=== PATIENT | female | born 1980 | race Caucasian/White ===

== ENCOUNTER 2016-09-09 10:20 | Emergency (ER) | payer OTHER ==
[2016-09-09] MEDS: SODIUM CHLORIDE 0.9% 1,000 ML IV STA (10:59)
[2016-09-09] MEDS: ONDANSETRON 4 MG/2 ML VIAL IVP STA ×2 (10:59→11:27)
[2016-09-09] MEDS: SODIUM CHLORIDE 0.9% 500 ML IV STA (11:00)
[2016-09-09] MEDS: METOCLOPRAMIDE 5 MG/ML 2 ML VIAL IVP STA (11:03)
[2016-09-09 11:15] LABS: Basophils % (A) 0 %; CH 31.7; CHCM 35.1; Eosinophils # (A) 0.1 k/uL (0-0.7); Eosinophils % (A) 0 %; HCT 46.4 % (34.0-46.0); HDW 2.42; HGB 15.6 gm/dL (11.4-16.0); Luc # (Auto) 0.12; Luc % (Auto) 1; Lymphocytes # (A) 1.1 k/uL (1.0-4.8); Lymphocytes % (A) 8 %; MCH 30.4 pg (25.0-35.0); MCHC 33.5 g/dL (31.0-37.0); MCV 90.6 fL (80.0-100.0); Mean Platelet Volume 7.1; Monocytes # (A) 0.6 k/uL (0-1.0); Monocytes % (A) 4 %; Neutrophils # (A) 11.8 k/uL (1.3-7.7); Neutrophils % (A) 86 %; RBC 5.12 m/uL (3.80-5.40); RDW 12.9 % (11.5-15.5); WBC 13.8 k/uL (3.8-10.6); WBC (Perox) 13.92
[2016-09-09 11:25] LABS: ALT 32 U/L (9-52); AST 19 U/L (14-36); Alkaline Phosphatase 65 U/L (38-126); Amylase 76 U/L (30-110); Anion Gap 15 mmol/L; Blood Urea Nitrogen 15 mg/dL (7-17); Calcium 9.6 mg/dL (8.4-10.2); Carbon Dioxide 19 mmol/L (22-30); Chloride 107 mmol/L (98-107); Glucose 110 mg/dL (74-99); Non-African American GFR(MDRD) >60 (>60 ml/min/1.73 sqM); Potassium 4.1 mmol/L (3.5-5.1); Sodium 141 mmol/L (137-145); Total Bilirubin 1.1 mg/dL (0.2-1.3); Total Protein 7.5 g/dL (6.3-8.2)
--- NOTE | 2016-09-09 11:49 | ED ---
Nausea/Vomiting/Diarrhea HPI - General Chief complaint: Nausea/Vomiting/Diarrhea Stated complaint: vomiting Time Seen by Provider: 09/09/16 10:42 Source: patient, family, RN notes reviewed Mode of arrival: ambulatory Limitations: no limitations - History of Present Illness Initial comments: 36-year-old female presents emergency Department chief complaint nausea vomiting. Patient states that she has ongoing cyclic vomiting secondary to her menstrual cycle. She states that she normally takes Reglan but if she does not take it before she starts vomiting she ends up in the hospital. Patient states that she's had multiple episodes of vomiting all morning long. Patient states that she had no fevers no chills. She states she just started menstrual cycle. Denies any dysuria hematuria. Patient states that she had no chest pain or shortness breath. Patient offers no complaints. - Related Data Previous Rx's Medication Instructions Recorded Metoclopramide [Reglan] 10 mg PO Q6HR PRN #20 tab 11/23/15 Allergies Allergy/AdvReac Type Severity Reaction Status Date / Time hydrocodone Allergy Unknown Verified 09/09/16 10:33 Review of Systems ROS Statement: Those systems with pertinent positive or pertinent negative responses have been documented in the HPI. ROS Other: All systems not noted in ROS Statement are negative. Past Medical History Past Medical History: No Reported History History of Any Multi-Drug Resistant Organisms: None Reported Past Surgical History: No Surgical Hx Reported Past Psychological History: No Psychological Hx Reported Smoking Status: Current every day smoker Past Alcohol Use History: None Reported Past Drug Use History: Marijuana General Exam Limitations: no limitations General appearance: alert, in no apparent distress Head exam: Present: atraumatic, normocephalic, normal inspection Eye exam: Present: normal appearance, PERRL, EOMI. Absent: scleral icterus, conjunctival injection, periorbital swelling ENT exam: Present: normal exam, normal oropharynx, mucous membranes moist, TM's normal bilaterally, normal external ear exam Neck exam: Present: normal inspection, full ROM. Absent: tenderness, meningismus, lymphadenopathy Respiratory exam: Present: normal lung sounds bilaterally. Absent: respiratory distress, wheezes, rales, rhonchi, stridor Cardiovascular Exam: Present: regular rate, normal rhythm, normal heart sounds. Absent: systolic murmur, diastolic murmur, rubs, gallop, clicks GI/Abdominal exam: Present: soft, normal bowel sounds. Absent: distended, tenderness, guarding, rebound, rigid Neurological exam: Present: alert Skin exam: Present: warm, dry, intact, normal color. Absent: rash Course Vital Signs 09/09/16 10:29 Temperature 97.4 F L Pulse Rate 78 Respiratory 18 Rate Blood Pressure 125/58 O2 Sat by Pulse 99 Oximetry - Reevaluation(s) Reevaluation #1: 09/09/16 12:31 Patient was reevaluated his time. She states she's been much improved at this time. Patient's abdomen was reevaluated and in his essentially nontender. Patient asking to be discharged. Medical Decision Making - Medical Decision Making 36-year-old female presented for nausea vomiting dysmenorrhea type symptoms. Patient is feeling improved after IV antiemetics and fluids. Patient has Reglan at home and will be discharged. This is a chronic condition. - Lab Data Result diagrams: 09/09/16 10:57 09/09/16 10:57 Lab Results 09/09/16 09/09/16 09/09/16 Range/Units 10:57 10:57 12:03 WBC 13.8 H (3.8-10.6) k/uL RBC 5.12 (3.80-5.40) m/uL Hgb 15.6 (11.4-16.0) gm/dL Hct 46.4 H (34.0-46.0) % MCV 90.6 (80.0-100.0) fL MCH 30.4 (25.0-35.0) pg MCHC 33.5 (31.0-37.0) g/dL RDW 12.9 (11.5-15.5) % Plt Count 276 (150-450) k/uL Neutrophils % 86 % Lymphocytes % 8 % Monocytes % 4 % Eosinophils % 0 % Basophils % 0 % Neutrophils # 11.8 H (1.3-7.7) k/uL Lymphocytes # 1.1 (1.0-4.8) k/uL Monocytes # 0.6 (0-1.0) k/uL Eosinophils # 0.1 (0-0.7) k/uL Basophils # 0.0 (0-0.2) k/uL Sodium 141 (137-145) mmol/L Potassium 4.1 (3.5-5.1) mmol/L Chloride 107 (98-107) mmol/L Carbon Dioxide 19 L (22-30) mmol/L Anion Gap 15 mmol/L BUN 15 (7-17) mg/dL Creatinine 0.90 (0.52-1.04) mg/dL Est GFR (MDRD) Af Amer >60 (>60 ml/min/1.73 sqM) Est GFR (MDRD) Non-Af >60 (>60 ml/min/1.73 sqM) Glucose 110 H (74-99) mg/dL Calcium 9.6 (8.4-10.2) mg/dL Total Bilirubin 1.1 (0.2-1.3) mg/dL AST 19 (14-36) U/L ALT 32 (9-52) U/L Alkaline Phosphatase 65 (38-126) U/L Total Protein 7.5 (6.3-8.2) g/dL Albumin 4.4 (3.5-5.0) g/dL Amylase 76 (30-110) U/L Lipase 62 (23-300) U/L Urine Color Yellow Urine Appearance Clear (Clear) Urine pH 6.5 (5.0-8.0) Ur Specific [place] 1.026 (1.001-1.035) Urine Protein 1+ H (Negative) Urine Glucose (UA) Negative (Negative) Urine Blood Moderate H (Negative) Urine Nitrate Negative (Negative) Urine Bilirubin Negative (Negative) Urine Urobilinogen 2.0 (<2.0) mg/dL Ur Leukocyte Esterase Moderate H (Negative) Urine RBC >182 H (0-5) /hpf Urine WBC 21 H (0-5) /hpf Ur Squamous Epith Cells 1 (0-4) /hpf Urine Bacteria Rare H (None) /hpf Urine Mucus Few H (None) /hpf Disposition Clinical Impression: Acute vomiting, Dysmenorrhea Disposition: HOME SELF-CARE Condition: Stable Instructions: Acute Nausea and Vomiting (ED) Additional Instructions: Please return to the Emergency Department if symptoms worsen or any other concerns. Time of Disposition: 12:32
[2016-09-09 12:31] LABS: Appearance,Urine Clear (Clear); Bacteria,Urine Rare /hpf; Bilirubin,Urine Negative (Negative); Glucose,Urine (UA) Negative (Negative); Ketones,Urine 2+ (Negative); Leukocyte Esterase,Urine Moderate (Negative); Mucus,Urine Few /hpf; Nitrite,Urine Negative (Negative); PH, Urine 6.5 (5.0-8.0); Particle Count 9271; Protein,Urine 1+ (Negative); RBC,Urine >182 /hpf (0-5); Specific Gravity,Urine 1.026 (1.001-1.035); Squamous Epithelial Cell,Urine 1 /hpf (0-4); UA Billing (MACRO vs. MICRO) MICRO; WBC,Urine 21 /hpf (0-5)
[2016-09-09 12:40] VITALS: BP 109/59; PULSE 70; RESP 16; TEMP 97.7
== END 2016-09-09 12:41 | disposition home or self-care (01) ==
LOC: EC 10:20
DX: G43.A0 Cyclical vomiting, in migraine, not intractable (principal); N94.6 Dysmenorrhea, unspecified; Z88.5 Allergy status to narcotic agent; F17.200 Nicotine dependence, unspecified, uncomplicated
CPT/HCPCS: 36415; 80053; 82150; 83690; 85025; 81001; 96374; 96375; 96376; 96361; 99284; J2765; J2405

== ENCOUNTER → 2016-09-27 | Outpatient (CLI) | payer OTHER ==
--- NOTE | 2016-09-27 11:15 | MR ---
MR cervical spine and lumbar spine HISTORY: Neck pain and back pain Multiplanar multisequence imaging obtained through the cervical and lumbar spine No comparisons Cervical spine MRI: Cervical vertebral bodies show preserved height, alignment, and there is some inc reased signal on T1 and T2-weighted sequences within the fifth cervical vertebral body to the left of midline likely hemangioma. Similarly T1 there is likely hemangioma present within the vertebral body . No significant central canal stenosis. Cervical cord signal, cervical medullary junction are normal . Partially empty sella noted incidentally. C2-3: No significant foraminal encroachment. No sizable disc herniation. C3-4: Posterior extension of endplate disc complex causes only minimal anterior mass effect on the th ecal sac. No significant foraminal encroachment. C4-5: Uncovertebral joint hypertrophy and facet arthropathy encroach mildly on the neural foramina le ft greater than right. No evident disc herniation C5-6: No significant foraminal encroachment or disc herniation C6-7: Mild posterior broad-based disc bulge causes slight anterior mass effect on the thecal sac. No significant foraminal encroachment. C7-T1: Unremarkable IMPRESSION: Mild degenerative disc disease. Lumbar MRI: Probable hemangiomas within the L3 vertebral body, T11 vertebral body. Lumbar vertebral b odies show preserved height and alignment. There is some loss of disc height and signal at L4-5, L5-S 1 compatible with disc desiccation. The conus is at L1 shows an unremarkable appearance. L5-S1: There is some facet arthropathy change. Minimal anterolisthesis grade 1 is present. No signifi cant central stenosis or sizable disc herniation. Circumferential extension of endplate disc complex accompanied with the listhesis contributes to cause minimal femoral encroachment bilaterally. L4-5: Facet arthropathy with hypertrophy of ligamentum flavum causes minimal lateral recess stenosis. Circumferential posterior broad-based disc bulge contacts the anterior thecal sac. No significant fo raminal encroachment or central stenosis L3-4: Hypertrophy of ligamentum flavum encroaches mildly on the lateral recesses. No significant fora joshua encroachment or evident disc herniation L2-3: Within normal limits L1-2: Unremarkable T12-L1: No significant abnormality IMPRESSION: Degenerative disc disease and facet arthropathy changes described. Probable hemangiomas w ithin multiple vertebral bodies. Additional findings above.
== END | disposition home or self-care (01) ==
LOC: RADMRIMAIN 09:20
PROVIDERS: ATTEND Psychiatry & Neurology Pain Medicine
DX: M51.36 Other intervertebral disc degeneration, lumbar region (principal); M46.96 Unspecified inflammatory spondylopathy, lumbar region; M50.30 Other cervical disc degeneration, unspecified cervical region
CPT/HCPCS: 72141; 72148

== ENCOUNTER → 2016-10-14 | Outpatient (CLI) | payer OTHER ==
[2016-10-14 12:24] LABS: CH 31.3; HCT 44.2 % (34.0-46.0); HGB 14.8 gm/dL (11.4-16.0); MCHC 33.5 g/dL (31.0-37.0); MCV 92.5 fL (80.0-100.0); Mean Platelet Volume 8.1; RBC 4.78 m/uL (3.80-5.40); RDW 12.9 % (11.5-15.5); WBC 6.9 k/uL (3.8-10.6)
[2016-10-14 12:48] LABS: Hemoglobin A1C 4.8 % (4.2-6.1)
[2016-10-14 12:55] LABS: ALT 34 U/L (9-52); AST 24 U/L (14-36); Alkaline Phosphatase 66 U/L (38-126); Anion Gap 11 mmol/L; Blood Urea Nitrogen 10 mg/dL (7-17); C Reactive Protein <5.0 mg/L (<10.0); Calcium 9.7 mg/dL (8.4-10.2); Carbon Dioxide 25 mmol/L (22-30); Chloride 105 mmol/L (98-107); Creatine Kinase 50 U/L (30-135); Glucose 80 mg/dL (74-99); Magnesium 1.9 mg/dL (1.6-2.3); Non-African American GFR(MDRD) >60 (>60 ml/min/1.73 sqM); Potassium 4.1 mmol/L (3.5-5.1); Sodium 141 mmol/L (137-145); Total Bilirubin 0.9 mg/dL (0.2-1.3); Total Protein 7.4 g/dL (6.3-8.2)
[2016-10-14 13:09] LABS: Erythrocyte Sedimentation Rate 3 mm/hr (0-20)
[2016-10-14 13:37] LABS: Vitamin B12 528 pg/mL (239-931)
--- NOTE | 2016-10-14 14:46 | XR ---
Bilateral knees HISTORY: Bilateral knee pain 2 views of both knees submitted On mineralization, joint spaces and alignment are maintained. There is no evident joint effusion bila terally. IMPRESSION: No significant abnormalities evident.
--- NOTE | 2016-10-14 14:50 | XR ---
Left ankle HISTORY: Pain 3 views of the left ankle Bone mineralization, joint spaces and alignment are maintained. No significant soft tissue swelling. IMPRESSION: Normal left ankle
--- NOTE | 2016-10-14 14:50 | XR ---
Left hip HISTORY: Pain 2 views of the left hip Bone mineralization, joint spaces and alignment are maintained. Pelvic calcifications are likely vasc ular. IMPRESSION: No significant abnormalities evident
[2016-10-14 19:48] LABS: ANA w/Reflex to Titer NEGATIVE (NEGATIVE)
[2016-10-15 05:47] LABS: Cyclic Citrullinated Pep IgG 4 UNITS (<20)
[2016-10-17 15:08] LABS: Scleroderma 70 Antibody 3 UNITS (<20)
[2016-10-18 07:11] LABS: Vitamin E (Alpha Tocopherol) 914 ug/dL (500-1800)
[2016-10-24 11:49] LABS: Mis test requested (Blood) PM-Scl Antibody
[2016-10-24 22:34] LABS: Vitamin K 293 pg/mL (80-1160)
== END | disposition home or self-care (01) ==
LOC: RADXRMAIN 11:04
PROVIDERS: ATTEND Psychiatry & Neurology Neurology
DX: M25.561 Pain in right knee (principal); M25.562 Pain in left knee; M25.572 Pain in left ankle and joints of left foot; M25.552 Pain in left hip
CPT/HCPCS: 73502; 80053; 82306; 82550; 82607; 83036; 83516; 83519; 83735; 84207; 84425; 84446; 84590; 84591; 84597; 85027; 85652; 86038; 86140; 86200; 86225; 86235

== ENCOUNTER → 2017-01-06 | Outpatient (CLI) | payer OTHER | END | disposition home or self-care (01) | LOC: LABWHC1 10:24 | PROVIDERS: ATTEND Psychiatry & Neurology Pain Medicine | DX: E55.9 Vitamin D deficiency, unspecified (principal) | CPT/HCPCS: 36415; 82306 ==

== ENCOUNTER 2017-08-24 00:46 | Emergency (ER) | payer OTHER ==
[2017-08-24] MEDS ORDERED: METOCLOPRAMIDE 5 MG/ML 2 ML VIAL IVP STA (01:12)
[2017-08-24] MEDS ORDERED: SODIUM CHLORIDE 0.9% 2,000 ML IV ONE (01:13)
--- NOTE | 2017-08-24 01:14 | ED ---
Abdominal Pain HPI - General Chief Complaint: Abdominal Pain Stated Complaint: vomiting Time Seen by Provider: 08/24/17 01:00 Source: patient, family, RN notes reviewed Mode of arrival: wheelchair Limitations: no limitations - History of Present Illness Initial Comments: This is a 37-year-old female who started her menstrual period today and started having nausea and vomiting shortly thereafter. He states normally she can take Reglan before the period starts she can truncate the nausea vomiting she was unable to do this today. She has some generalized abdominal pain nausea vomiting. He did pass witnesses happen she needed IV fluids and IV Reglan. She has some complaints of neck pain she does have a procedure scheduled for tomorrow she would prefer no nonsteroidals. MD Complaint: abdominal pain, other - Related Data Home Medications Medication Instructions Recorded Confirmed Metoclopramide [Reglan] 10 mg PO DAILY 09/09/16 08/24/17 Allergies Allergy/AdvReac Type Severity Reaction Status Date / Time hydrocodone Allergy Unknown Verified 09/09/16 12:33 Review of Systems ROS Statement: Those systems with pertinent positive or pertinent negative responses have been documented in the HPI. ROS Other: All systems not noted in ROS Statement are negative. Past Medical History Past Medical History: No Reported History History of Any Multi-Drug Resistant Organisms: None Reported Past Surgical History: No Surgical Hx Reported Past Psychological History: No Psychological Hx Reported Smoking Status: Current every day smoker Past Alcohol Use History: None Reported Past Drug Use History: Marijuana General Exam - General Exam Comments Initial Comments: This is a well-developed well-nourished awake alert oriented 3 female she does read lips and his heart.. She is actively vomiting. Limitations: no limitations General appearance: alert, anxious, in distress Head exam: Present: atraumatic, normocephalic, normal inspection Eye exam: Present: normal appearance, PERRL, EOMI. Absent: scleral icterus, conjunctival injection, periorbital swelling ENT exam: Present: mucous membranes dry Neck exam: Present: normal inspection. Absent: tenderness, meningismus, lymphadenopathy Respiratory exam: Present: normal lung sounds bilaterally. Absent: respiratory distress, wheezes, rales, rhonchi, stridor Cardiovascular Exam: Present: regular rate, normal rhythm, normal heart sounds. Absent: systolic murmur, diastolic murmur, rubs, gallop, clicks GI/Abdominal exam: Present: soft, normal bowel sounds. Absent: distended, tenderness, guarding, rebound, rigid Extremities exam: Present: normal inspection, full ROM, normal capillary refill. Absent: tenderness, pedal edema, joint swelling, calf tenderness Back exam: Present: normal inspection Neurological exam: Present: alert, oriented X3, CN II-XII intact Psychiatric exam: Present: normal affect, normal mood Skin exam: Present: warm, dry, intact, normal color. Absent: rash Course Vital Signs 08/24/17 00:51 Temperature 97.8 F Pulse Rate 97 Respiratory 20 Rate Blood Pressure 151/67 O2 Sat by Pulse 98 Oximetry Medical Decision Making - Medical Decision Making The patient is feeling much improved at this time after IV fluids and IV Reglan patient will be discharged - Lab Data Result diagrams: 08/24/17 01:00 08/24/17 01:00 Lab Results 08/24/17 08/24/17 Range/Units 01:00 01:00 WBC 12.5 H (3.8-10.6) k/uL RBC 5.07 (3.80-5.40) m/uL Hgb 15.7 (11.4-16.0) gm/dL Hct 47.2 H (34.0-46.0) % MCV 93.1 (80.0-100.0) fL MCH 30.9 (25.0-35.0) pg MCHC 33.2 (31.0-37.0) g/dL RDW 14.5 (11.5-15.5) % Plt Count 310 (150-450) k/uL Neutrophils % 82 % Lymphocytes % 12 % Monocytes % 4 % Eosinophils % 1 % Basophils % 0 % Neutrophils # 10.2 H (1.3-7.7) k/uL Lymphocytes # 1.5 (1.0-4.8) k/uL Monocytes # 0.5 (0-1.0) k/uL Eosinophils # 0.1 (0-0.7) k/uL Basophils # 0.0 (0-0.2) k/uL Sodium 142 (137-145) mmol/L Potassium 4.3 (3.5-5.1) mmol/L Chloride 110 H (98-107) mmol/L Carbon Dioxide 16 L (22-30) mmol/L Anion Gap 16 mmol/L BUN 12 (7-17) mg/dL Creatinine 0.80 (0.52-1.04) mg/dL Est GFR (MDRD) Af Amer >60 (>60 ml/min/1.73 sqM) Est GFR (MDRD) Non-Af >60 (>60 ml/min/1.73 sqM) Glucose 105 H (74-99) mg/dL Calcium 10.5 H (8.4-10.2) mg/dL Magnesium 2.0 (1.6-2.3) mg/dL Total Bilirubin 0.8 (0.2-1.3) mg/dL AST 19 (14-36) U/L ALT 28 (9-52) U/L Alkaline Phosphatase 76 (38-126) U/L Total Protein 7.8 (6.3-8.2) g/dL Albumin 4.8 (3.5-5.0) g/dL Disposition Clinical Impression: Acute gastritis, Abdominal pain, Emesis Disposition: HOME SELF-CARE Condition: Good Instructions: Abdominal Pain (ED), Acute Nausea and Vomiting (ED) Referrals: None,Stated [Primary Care Provider] - 1-2 days
[2017-08-24 01:29] LABS: Basophils % (A) 0 %; Eosinophils # (A) 0.1 k/uL (0-0.7); Eosinophils % (A) 1 %; HCT 47.2 % (34.0-46.0); HGB 15.7 gm/dL (11.4-16.0); Lymphocytes # (A) 1.5 k/uL (1.0-4.8); Lymphocytes % (A) 12 %; MCH 30.9 pg (25.0-35.0); MCHC 33.2 g/dL (31.0-37.0); MCV 93.1 fL (80.0-100.0); Mean Platelet Volume 8.2; Monocytes # (A) 0.5 k/uL (0-1.0); Monocytes % (A) 4 %; Neutrophils # (A) 10.2 k/uL (1.3-7.7); Neutrophils % (A) 82 %; Platelet Count 310 k/uL (150-450); RBC 5.07 m/uL (3.80-5.40); RDW 14.5 % (11.5-15.5); WBC 12.5 k/uL (3.8-10.6)
[2017-08-24 01:40] LABS: ALT 28 U/L (9-52); AST 19 U/L (14-36); Albumin 4.8 g/dL (3.5-5.0); Alkaline Phosphatase 76 U/L (38-126); Anion Gap 16 mmol/L; Blood Urea Nitrogen 12 mg/dL (7-17); Calcium 10.5 mg/dL (8.4-10.2); Carbon Dioxide 16 mmol/L (22-30); Chloride 110 mmol/L (98-107); Glucose 105 mg/dL (74-99); Potassium 4.3 mmol/L (3.5-5.1); Sodium 142 mmol/L (137-145); Total Bilirubin 0.8 mg/dL (0.2-1.3); Total Protein 7.8 g/dL (6.3-8.2)
[2017-08-24 02:35] VITALS: BP 131/64; PULSE 78; RESP 18; TEMP 98.9
== END 2017-08-24 02:37 | disposition home or self-care (01) ==
LOC: EC 00:46
DX: K29.00 Acute gastritis without bleeding (principal); F17.200 Nicotine dependence, unspecified, uncomplicated; Z79.899 Other long term (current) drug therapy; Z88.5 Allergy status to narcotic agent
CPT/HCPCS: 36415; 80053; 83735; 85025; 99284; 96374; 96361; J2765

== ENCOUNTER → 2017-11-14 | Outpatient (CLI) | payer OTHER ==
--- NOTE | 2017-11-14 15:45 | US ---
EXAMINATION TYPE: US pelvic complete DATE OF EXAM: 11/14/2017 COMPARISON: NONE CLINICAL HISTORY: N94.6 DYSMENORRHEA; DUB x 5 years; G0; just started on control 1 month ago to regulate menses; patient stated had 3 cycles in September. TECHNIQUE: Transvaginal (TV) and Transabdominal (TA) per order . Date of LMP: 11/11/2017 EXAM MEASUREMENTS: Uterus: 6.9 x 4.6 x 3.0 cm Endometrial Stripe: 0.9 cm Right Ovary: 1.6 x 2.1 x 1.2 cm Left Ovary: 2.5 x 1.4 x 1.9 cm 1. Uterus: Anteverted; no uterine fibroids are seen 2. Endometrium: wnl for Day 4 LMP 3. Right Ovary: small follicle 4. Left Ovary: simple follicular cyst = 0.9 x 0.9 x 0.9cm 5. Bilateral Adnexa: wnl 6. Posterior cul-de-sac: wnl IMPRESSION: 1. Endometrial thickness is within normal limits for a premenopausal female. 2. No uterine leiomyomas are identified. 3. Unremarkable ovaries.
== END | disposition home or self-care (01) ==
LOC: RADUSWWP 14:47
PROVIDERS: ATTEND Surgery
DX: R93.8 Abnormal findings on diagnostic imaging of other specified body structures (principal); N93.8 Other specified abnormal uterine and vaginal bleeding; N94.6 Dysmenorrhea, unspecified
CPT/HCPCS: 76830; 76856

== ENCOUNTER → 2017-11-16 | Outpatient (CLI) | payer OTHER ==
[2017-11-16 13:57] LABS: Basophils % (A) 0 %; Eosinophils # (A) 0.1 k/uL (0-0.7); Eosinophils % (A) 1 %; HCT 41.4 % (34.0-46.0); HGB 13.6 gm/dL (11.4-16.0); Lymphocytes # (A) 1.8 k/uL (1.0-4.8); Lymphocytes % (A) 23 %; MCH 30.6 pg (25.0-35.0); MCHC 32.8 g/dL (31.0-37.0); MCV 93.3 fL (80.0-100.0); Mean Platelet Volume 7.1; Monocytes # (A) 0.4 k/uL (0-1.0); Monocytes % (A) 5 %; Neutrophils # (A) 5.3 k/uL (1.3-7.7); Neutrophils % (A) 69 %; Platelet Count 273 k/uL (150-450); RBC 4.44 m/uL (3.80-5.40); WBC 7.7 k/uL (3.8-10.6)
[2017-11-16 14:12] LABS: ALT 20 U/L (9-52); AST 17 U/L (14-36); Albumin 3.8 g/dL (3.5-5.0); Alkaline Phosphatase 54 U/L (38-126); Anion Gap 12 mmol/L; Blood Urea Nitrogen 20 mg/dL (7-17); Calcium 9.2 mg/dL (8.4-10.2); Carbon Dioxide 22 mmol/L (22-30); Chloride 107 mmol/L (98-107); Cholesterol 134 mg/dL (<200); Glucose 72 mg/dL (74-99); HDL Cholesterol 67 mg/dL (40-60); LDL Cholesterol,Calculated 56 mg/dL (0-99); Potassium 4.3 mmol/L (3.5-5.1); Sodium 141 mmol/L (137-145); Total Bilirubin 0.6 mg/dL (0.2-1.3); Total Protein 6.5 g/dL (6.3-8.2); Triglycerides 57 mg/dL (<150)
== END | disposition home or self-care (01) ==
LOC: LABWHC1 12:32
PROVIDERS: ATTEND Family Medicine
DX: Z00.00 Encounter for general adult medical examination without abnormal findings (principal); E66.9 Obesity, unspecified; N93.8 Other specified abnormal uterine and vaginal bleeding; E55.9 Vitamin D deficiency, unspecified
CPT/HCPCS: 36415; 80053; 80061; 82306; 84443; 85025

== ENCOUNTER 2018-11-05 09:57 | Emergency (ER) | payer BC, OTHER ==
[2018-11-05 10:12] VITALS: BP 150/84; PULSE 87; RESP 18; TEMP 98.3
[2018-11-05] MEDS ORDERED: DIPH,PERTUS(ACELL)TETVAC-LF 0.5 ML VIAL IM ONE (10:56)
--- NOTE | 2018-11-05 10:58 | ED ---
Head Injury HPI - General Chief complaint: Head Injury Stated complaint: [facility] - head injury Time Seen by Provider: 11/05/18 10:32 Source: patient, RN notes reviewed, old records reviewed, Caregiver Mode of arrival: ambulatory Limitations: no limitations - History of Present Illness Initial comments: Patient is a 38-year-old female who presents emergency Department today with complaints of head injury yesterday. Patient reports that she bent over to picking tech a block of cheese when she stood up too quickly she hit her head on the metal latch of a steel door. Patient states that she has no laceration over the top of her scalp. It closed at this time. Patient states that today she's been feeling confused, and acting slow to process things. Patient states that she has had no nausea or vomiting. She does complain of occasional dizziness. Patient reports no significant past medical history of head injuries or concussions. Patient states that she is deaf and lip reads to communicate. - Related Data Home Medications Medication Instructions Recorded Confirmed Aspirin EC [Ecotrin Low Dose] 81 mg PO DAILY PRN 11/05/18 11/05/18 Cholecalciferol [Vitamin D3] 1,000 unit PO DAILY 11/05/18 11/05/18 Cyclobenzaprine [Flexeril] 10 mg PO DAILY PRN 11/05/18 11/05/18 Previous Rx's Medication Instructions Recorded Meclizine HCl 25 mg PO TID #12 tablet 11/05/18 Ondansetron [Zofran ODT] 4 mg PO Q8HR #20 tab 11/05/18 Allergies/Adverse reactions: Allergies Allergy/AdvReac Type Severity Reaction Status Date / Time hydrocodone Allergy Unknown Verified 11/05/18 10:51 Review of Systems ROS Statement: Those systems with pertinent positive or pertinent negative responses have been documented in the HPI. ROS Other: All systems not noted in ROS Statement are negative. Past Medical History Past Medical History: Hearing Disorder / Deafness History of Any Multi-Drug Resistant Organisms: None Reported Past Surgical History: No Surgical Hx Reported Additional Past Surgical History / Comment(s): RFA 09/06/17 Past Psychological History: No Psychological Hx Reported Smoking Status: Current every day smoker Past Alcohol Use History: None Reported Past Drug Use History: Marijuana General Exam - General Exam Comments Initial Comments: this is a 38-year-old female. Alert and oriented 3. Limitations: no limitations General appearance: alert, in no apparent distress Head exam: Present: atraumatic, normocephalic, normal inspection, other (Patient has a closed 3 cm laceration with scabbing over it over the anterior aspect of the scalp.) Eye exam: Present: normal appearance, PERRL, EOMI, other. Absent: scleral icterus, conjunctival injection, periorbital swelling ENT exam: Present: normal exam, mucous membranes moist Neck exam: Present: normal inspection. Absent: tenderness, meningismus, lymphadenopathy Respiratory exam: Present: normal lung sounds bilaterally. Absent: respiratory distress, wheezes, rales, rhonchi, stridor Cardiovascular Exam: Present: regular rate, normal rhythm, normal heart sounds. Absent: systolic murmur, diastolic murmur, rubs, gallop, clicks GI/Abdominal exam: Present: soft, normal bowel sounds. Absent: distended, tenderness, guarding, rebound, rigid Extremities exam: Present: normal inspection, full ROM, normal capillary refill. Absent: tenderness, pedal edema, joint swelling, calf tenderness Back exam: Present: normal inspection Neurological exam: Present: alert, oriented X3, CN II-XII intact Psychiatric exam: Present: normal affect, normal mood Skin exam: Present: warm, dry, intact, normal color. Absent: rash Course Vital Signs 11/05/18 10:07 Temperature 98.3 F Pulse Rate 87 Respiratory 18 Rate Blood Pressure 150/84 O2 Sat by Pulse 99 Oximetry Medical Decision Making - Medical Decision Making 38-year-old female presents emergency department today with complaints of headache, slight confusion to later sponsors after head injury yesterday. She also had a laceration over the top of her scalp that happened when she had her head yesterday on the metal door handle. At this time Patient is given updated T. Patient has no neurological deficits. With the concern for delayed responses we did do a CT of the brain which is negative for any acute process. C-spine shows some cervical spasms but no other acute changes. Discussed the Patient has a concussion. Discussed Motrin Tylenol for headaches and pains. Discussed that she needs to diminish any excessive stimuli. QUESTIONS were answered and return parameters were discussed. - Radiology Data Radiology results: report reviewed Normal CT of the brain. No acute posterior manage changes evident. Cervical kyphosis related to Patient positioning or muscle spasm. No acute posterior manage changes noted on C-spine. Disposition Clinical Impression: Concussion Disposition: HOME SELF-CARE Condition: Good Instructions (If sedation given, give patient instructions): Concussion (ED) Additional Instructions: Patient advised to take Motrin Tylenol for headache and pain. He can use meclizine as needed for some dizziness and nausea medicine as needed. Patient should return to the emergency department if any alarming signs or symptoms occur. Prescriptions: Meclizine HCl 25 mg PO TID #12 tablet Ondansetron [Zofran ODT] 4 mg PO Q8HR #20 tab Is patient prescribed a controlled substance at d/c from ED?: No Referrals: Pepper Tiwari MD [Primary Care Provider] - 1-2 days Time of Disposition: 11:45
--- NOTE | 2018-11-05 11:21 | CT ---
EXAMINATION TYPE: CT brain scooter wo con DATE OF EXAM: 11/05/2018 COMPARISON: None HISTORY: Injury to back of head yesterday. CT DLP: 1268.9 mGycm, Automated exposure control for dose reduction was used. CONTRAST: Patient injected with mL of . CT of the brain is performed utilizing 3 mm thick sections through the posterior fossa and 3 mm thick sections through the remaining calvarium. Study is performed within 24 hours of arrival to the hospital. No abnormal hyperdensity is present to suggest an acute intracranial hemorrhage. No mass lesion is evident. No acute infarcts are evident. Ventricles and sulci are appropriate for the patient age. Paranasal sinuses and mastoid air cells within the [id number] are clear. No fractures are evident. IMPRESSIONS: 1. Normal CT brain. No acute posttraumatic changes evident. CT cervical spine. COMPARISON: None CT of the cervical spine is performed in the axial plane at 2 mm thick sections. Reconstructed image s in the coronal, and sagittal plane are reviewed on the computer. No acute fractures are evident. There is a cervical kyphosis centered at approximately C5. Disc heights are preserved. Vertebral body heights are preserved. No spinal canal stenosis is evident. No neural foraminal stenosis is evident. IMPRESSIONS: 1. Cervical kyphosis related to patient positioning or muscle spasm. 2. No acute posttraumatic changes.
== END 2018-11-05 12:30 | disposition home or self-care (01) ==
LOC: EC 09:57
DX: S06.0X0A Concussion without loss of consciousness, initial encounter (principal); S01.01XA Laceration without foreign body of scalp, initial encounter; H91.90 Unspecified hearing loss, unspecified ear; F17.200 Nicotine dependence, unspecified, uncomplicated; Z88.5 Allergy status to narcotic agent; Z23 Encounter for immunization; W22.8XXA Striking against or struck by other objects, initial encounter; Y92.69 Other specified industrial and construction area as the place of occurrence of the external cause; Y99.0 Civilian activity done for income or pay
CPT/HCPCS: 70450; 72125; 90471; 90715; 99284

== ENCOUNTER 2023-01-15 05:04 | Emergency (ER) | payer BC ==
[2023-01-15 05:15] VITALS: BP 142/83; PULSE 82; RESP 16; TEMP 97.8
--- NOTE | 2023-01-15 07:00 | XR ---
EXAMINATION TYPE: XR hand complete RT DATE OF EXAM: 01/15/2023 CLINICAL HISTORY: pain TECHNIQUE: Frontal, lateral and oblique images of the right hand are obtained. COMPARISON: None. FINDINGS: There is no acute fracture/dislocation evident. The joint spaces appear within normal limi ts. The overlying soft tissue appears unremarkable. IMPRESSION: There is no acute fracture or dislocation ICD 10 NO FRACTURE, INITIAL EVALUATION
--- NOTE | 2023-01-15 07:02 | ED ---
Fall HPI - General Chief Complaint: Fall Stated Complaint: Fall, Right Wrist Fracture/Broken Time Seen by Provider: 01/15/23 05:24 Source: patient Mode of arrival: ambulatory - History of Present Illness Initial Comments: This patient is a 43-year-old woman who presents to have reevaluation of right hand. The patient states that she fell and her hand struck wall 3 days ago. S he was seen at a clinic and had x-rays. She states since that time the swelling has increased and the pain is worsening. She denies loss of sensation. She states movement is limited by pain. Complaint: fall -: days(s) Fall From: standing Place Fall Occurred: home Loss of Consciousness: none Prolonged Down Time?: no Symptoms Prior to Fall: none Location - Extremities: Right: Hand Severity: moderate Quality: aching Context: tripped/slipped - Related Data Home Medications Medication Instructions Recorded Confirmed Aspirin EC [Ecotrin Low Dose] 81 mg PO DAILY PRN 11/05/18 11/05/18 Cholecalciferol [Vitamin D3] 1,000 unit PO DAILY 11/05/18 11/05/18 Cyclobenzaprine [Flexeril] 10 mg PO DAILY PRN 11/05/18 11/05/18 Previous Rx's Medication Instructions Recorded Meclizine HCl 25 mg PO TID #12 tablet 11/05/18 Ondansetron [Zofran ODT] 4 mg PO Q8HR #20 tab 11/05/18 Allergies Allergy/AdvReac Type Severity Reaction Status Date / Time hydrocodone Allergy Unknown Verified 01/15/23 05:11 NSAIDS (Non-Steroidal Allergy Unknown Verified 01/15/23 05:11 Anti-Inflamma Review of Systems ROS Statement: Those systems with pertinent positive or pertinent negative responses have been documented in the HPI. ROS Other: All systems not noted in ROS Statement are negative. Constitutional: Denies: fever Respiratory: Denies: dyspnea Cardiovascular: Denies: chest pain Gastrointestinal: Denies: vomiting Musculoskeletal: Reports: as per HPI, joint swelling, arthralgia Neurological: Denies: weakness, numbness Past Medical History Past Medical History: Hearing Disorder / Deafness History of Any Multi-Drug Resistant Organisms: None Reported Past Surgical History: No Surgical Hx Reported Additional Past Surgical History / Comment(s): RFA 09/06/17 Past Psychological History: No Psychological Hx Reported Smoking Status: Never smoker Past Alcohol Use History: Rare Past Drug Use History: Marijuana General Exam Limitations: no limitations General appearance: alert, in no apparent distress Head exam: Present: atraumatic, normocephalic Cardiovascular Exam: Present: other (Normal capillary refill. Normal radial and ulnar pulse on right) Right Upper Arm exam: Present: normal inspection, full ROM. Absent: tenderness, swelling Elbow exam: Present: normal inspection, full ROM. Absent: tenderness, swelling Forearm Wrist exam: Present: normal inspection, full ROM. Absent: tenderness, swelling Hand Wrist exam: Present: tenderness, swelling, abrasion, ecchymosis. Absent: full ROM, laceration, deformity, crepitus, dislocation, erythema, amputation, nail avulsion, subungual hematoma Neuro motor exam: Present: wrist extension intact, thumb opposition intact, thumb IP flexion intact, thumb adduction intact, fingers 2-5 abduction intact Neurosensory exam: Present: 2-point discrimination, radial nerve intact, ulnar nerve intact, median nerve intact Vascular: Present: normal capillary refill. Absent: vascular compromise Neurological exam: Absent: motor sensory deficit Skin exam: Present: warm, dry, intact, normal color. Absent: rash Course Vital Signs 01/15/23 05:12 Temperature 97.8 F Pulse Rate 82 Respiratory 16 Rate Blood Pressure 142/83 O2 Sat by Pulse 98 Oximetry Medical Decision Making - Medical Decision Making Patient had right hand x-rays which I interpreted as being negative for fracture or dislocation. Patient is 43-year-old woman with increased swelling and pain after a fall. She had x-rays here which I interpreted as being negative for acute bony injury. Discussed appropriate further care and follow-up as well as needed to have repeat x-rays in proximally 5-7 days if not having significant improvement. Discussed appropriate conservative treatment and follow-up. Was pt. sent in by a medical professional or institution (, PA, RESEARCH AND EVALUATION MANAGER, urgent care, hospital, or [facility]...) When possible be specific @ -[No] Did you speak to anyone other than the patient for history (EMS, parent, family, police, friend...)? What history was obtained from this source @ -[No] Did you review nursing and triage notes (agree or disagree)? Why? @ -[I reviewed and agree with nursing and triage notes] Were old charts reviewed (outside hosp., previous admission, EMS record, old EKG, old radiological studies, urgent care reports/EKG's, [facility] records)? Report findings @ -[No old charts were reviewed] Differential Diagnosis (chest pain, altered mental status, abdominal pain women, abdominal pain men, vaginal bleeding, weakness, fever, dyspnea, syncope, headache, dizziness, GI bleed, back pain, seizure, CVA, palpatations, mental health, musculoskeletal)? @ -[Differential Musculoskeletal Muscular strain, contusion, ligament sprain, fracture, arthritis, septic arthritis, bursitis, cellulitis, muscle spasm, nerve compression, DVT, arterial occlusion, herpes zoster, electrolyte abnormality, tumor.... This is not meant to be in all inclusive list EKG interpreted by me (3pts min.). @ -[ X-rays interpreted by me (1pt min.). @ -[As above CT interpreted by me (1pt min.). @ -[None done] U/S interpreted by me (1pt. min.). @ -[None done] What testing was considered but not performed or refused? (CT, X-rays, U/S, labs)? Why? @ -[None] What meds were considered but not given or refused? Why? @ -[None] Did you discuss the management of the patient with other professionals (professionals i.e. , PA, RESEARCH AND EVALUATION MANAGER, lab, RT, psych nurse, social work supervisor, teacher resource, teacher, sustainability officer, case therapist)? Give summary @ -[No] Was smoking cessation discussed for >3mins.? @ -[No] Was critical care preformed (if so, how long)? @ -[No] Were there social determinants of health that impacted care today? How? (Homelessness, low income, unemployed, alcoholism, drug addiction, transportation, low edu. Level, literacy, decrease access to med. care, penitentiary, rehab)? @ -[No] Was there de-escalation of care discussed even if they declined (Discuss DNR or withdrawal of care, Hospice)? DNR status @ -[No] What co-morbidities impacted this encounter? (DM, HTN, Smoking, COPD, CAD, Cancer, CVA, ARF, Chemo, Hep., AIDS, mental health diagnosis, sleep apnea, morbid obesity)? @ -[None] Was patient admitted / discharged? Hospital course, mention meds given and route, prescriptions, significant lab abnormalities, going to OR and other pertinent info. @ -[Discharged Undiagnosed new problem with uncertain prognosis? @ -[No] Drug Therapy requiring intensive monitoring for toxicity (Heparin, Nitro, Insulin, Cardizem)? @ -[No] Were any procedures done? @ -[No] Diagnosis/symptom? @ -[Right hand injury Right hand contusion Acute, or Chronic, or Acute on Chronic? @ -[Acute Uncomplicated (without systemic symptoms) or Complicated (systemic symptoms)? @ -[Uncomplicated Side effects of treatment? @ -[No] Exacerbation, Progression, or Severe Exacerbation? @ -[No] Poses a threat to life or bodily function? How? (Chest pain, [place], [place], pneumonia, PE, COPD, DKA, ARF, appy, cholecystitis, CVA, Diverticulitis, Homicidal, Suicidal, threat to staff... and all critical care pts) @ -[No] Disposition Clinical Impression: Hand contusion Disposition: HOME SELF-CARE Condition: Good Instructions (If sedation given, give patient instructions): Contusion in Adults (ED) Is patient prescribed a controlled substance at d/c from ED?: No Referrals: Pepper Tiwari MD [Primary Care Provider] - 1-2 days
== END 2023-01-15 07:18 | disposition home or self-care (01) ==
LOC: EC 05:04
DX: S60.221A Contusion of right hand, initial encounter (principal); F12.90 Cannabis use, unspecified, uncomplicated; Z88.5 Allergy status to narcotic agent; Z88.6 Allergy status to analgesic agent; Z79.82 Long term (current) use of aspirin; W18.30XA Fall on same level, unspecified, initial encounter
CPT/HCPCS: 99283

== ENCOUNTER 2023-08-24 22:37 | Emergency (ER) | payer BC ==
--- NOTE | 2023-08-24 23:51 | ED ---
General Adult HPI - General Chief complaint: Upper Respiratory Infection Stated complaint: Covid+ Time Seen by Provider: 08/24/23 23:50 Source: patient Mode of arrival: ambulatory Limitations: no limitations - History of Present Illness Initial comments: 43-year-old female presenting to the ED with a chief complaint of myalgias. States today onset of nausea, vomiting, myalgias, congestion, cough. States that she to take over test which had a faint line on it prompting presentation to the ED for further evaluation. - Related Data Home Medications Medication Instructions Recorded Confirmed Aspirin EC [Ecotrin Low Dose] 81 mg PO DAILY PRN 11/05/18 11/05/18 Cholecalciferol [Vitamin D3] 1,000 unit PO DAILY 11/05/18 11/05/18 Cyclobenzaprine [Flexeril] 10 mg PO DAILY PRN 11/05/18 11/05/18 Previous Rx's Medication Instructions Recorded Meclizine HCl 25 mg PO TID #12 tablet 11/05/18 Ondansetron [Zofran ODT] 4 mg PO Q8HR #20 tab 11/05/18 Allergies Allergy/AdvReac Type Severity Reaction Status Date / Time hydrocodone Allergy Unknown Verified 08/24/23 23:42 NSAIDS (Non-Steroidal Allergy Unknown Verified 08/24/23 23:42 Anti-Inflamma Review of Systems ROS Statement: Those systems with pertinent positive or pertinent negative responses have been documented in the HPI. ROS Other: All systems not noted in ROS Statement are negative. Past Medical History Past Medical History: Hearing Disorder / Deafness History of Any Multi-Drug Resistant Organisms: None Reported Past Surgical History: No Surgical Hx Reported Additional Past Surgical History / Comment(s): RFA 09/06/17 Past Psychological History: No Psychological Hx Reported Smoking Status: Never smoker Past Alcohol Use History: Rare Past Drug Use History: Marijuana General Exam Limitations: language barrier (Deaf, reads lips) General appearance: alert, in no apparent distress Eye exam: Present: normal appearance Neck exam: Present: normal inspection Respiratory exam: Present: normal lung sounds bilaterally Cardiovascular Exam: Present: regular rate, normal rhythm GI/Abdominal exam: Present: soft Neurological exam: Present: alert, oriented X3 Course Vital Signs 08/24/23 23:39 Temperature 97.9 F Pulse Rate 103 H Respiratory 20 Rate Blood Pressure 112/72 O2 Sat by Pulse 98 Oximetry Medical Decision Making - Medical Decision Making Was pt. sent in by a medical professional or institution (HERMINIA Fulton, ISOBUTYLENE OPERATOR CHIEF, urgent care, hospital, or longterm...) When possible be specific @ -No Did you speak to anyone other than the patient for history (EMS, parent, family, police, friend...)? What history was obtained from this source @ -No Did you review nursing and triage notes (agree or disagree)? Why? @ -I reviewed and agree with nursing and triage notes Were old charts reviewed (outside hosp., previous admission, EMS record, old EKG, old radiological studies, urgent care reports/EKG's, longterm records)? Report findings @ -No old charts were reviewed Differential Diagnosis (chest pain, altered mental status, abdominal pain women, abdominal pain men, vaginal bleeding, weakness, fever, dyspnea, syncope, headache, dizziness, GI bleed, back pain, seizure, CVA, palpatations, mental health, musculoskeletal)? @ -Differential Fever: Pneumonia, viral URI, endocarditis, myocarditis, pericarditis, otitis, sinusitis, peritonsillar Abscess, retropharyngeal Abscess, epiglottitis, peritonitis, appendicitis, Sujata cystitis, diverticulitis, hepatitis, colitis, UTI, PID, TOA, pyelonephritis, prostatitis, epididymitis, meningitis, encephalitis, pulmonary embolism, CVA, thyroid storm, pancreatitis, adrenal crisis, cavernous sinus thrombosis, this is not meant to be an all-inclusive list. EKG interpreted by me (3pts min.). @ -None X-rays interpreted by me (1pt min.). @ -None done CT interpreted by me (1pt min.). @ -None done U/S interpreted by me (1pt. min.). @ -None done What testing was considered but not performed or refused? (CT, X-rays, U/S, labs)? Why? @ -None What meds were considered but not given or refused? Why? @ -None Did you discuss the management of the patient with other professionals (professionals i.e. HERMINIA Fulton, ISOBUTYLENE OPERATOR CHIEF, lab, RT, psych nurse, child protective services social worker, field irrigation worker, teacher, information technology officer, nurse case manager)? Give summary @ -No Was smoking cessation discussed for >3mins.? @ -No Was critical care preformed (if so, how long)? @ -No Were there social determinants of health that impacted care today? How? (Homelessness, low income, unemployed, alcoholism, drug addiction, transportation, low edu. Level, literacy, decrease access to med. care, prison, rehab)? @ -No Was there de-escalation of care discussed even if they declined (Discuss DNR or withdrawal of care, Hospice)? DNR status @ -No What co-morbidities impacted this encounter? (DM, HTN, Smoking, COPD, CAD, Cancer, CVA, ARF, Chemo, Hep., AIDS, mental health diagnosis, sleep apnea, morbid obesity)? @ -None Was patient admitted / discharged? Hospital course, mention meds given and route, prescriptions, significant lab abnormalities, going to OR and other pertinent info. @ -Discharge 43-year-old female presenting to the ED with 1 day history of myalgias, nausea, headache, congestion, cough. Serology panel shows COVID positive. X-ray revealed no evidence of pneumonia or other acute process. At this time vital signs stable afebrile. Discharged home in stable condition. Discussed return precautions patient verbalizes agreement. Undiagnosed new problem with uncertain prognosis? @ -No Drug Therapy requiring intensive monitoring for toxicity (Heparin, Nitro, Insulin, Cardizem)? @ -No Were any procedures done? @ -No Diagnosis/symptom? @ -COVID Acute, or Chronic, or Acute on Chronic? @ -Acute Uncomplicated (without systemic symptoms) or Complicated (systemic symptoms)? @ -Uncomplicated Side effects of treatment? @ -No Exacerbation, Progression, or Severe Exacerbation? @ -No Poses a threat to life or bodily function? How? (Chest pain, [place], [place], pneumonia, PE, COPD, DKA, ARF, appy, cholecystitis, CVA, Diverticulitis, Homicidal, Suicidal, threat to staff... and all critical care pts) @ -No - Lab Data Lab Results 08/24/23 Range/Units 23:51 Influenza Type A (PCR) Not Detected (Not Detectd) Influenza Type B (PCR) Not Detected (Not Detectd) RSV (PCR) Not Detected (Not Detectd) SARS-CoV-2 (PCR) Detected A (Not Detectd) Disposition Clinical Impression: COVID-19 Disposition: HOME SELF-CARE Condition: Good Additional Instructions: Please return to the Emergency Department if symptoms worsen or any other concerns. Please follow up with your PCP. Is patient prescribed a controlled substance at d/c from ED?: No Referrals: None,Stated [Primary Care Provider] - 1-2 days Time of Disposition: 01:29
--- NOTE | 2023-08-25 01:04 | XR ---
EXAM: XR Chest, 2 Views CLINICAL HISTORY: ITS.REASON XR Reason: r/o pna TECHNIQUE: Frontal and lateral views of the chest. COMPARISON: No relevant prior studies available. FINDINGS: Lungs: No consolidation. No overt edema. Pleural space: No pleural effusion. No pneumothorax. Heart: Unremarkable. No cardiomegaly. Bones/joints: Unremarkable. No fracture or malalignment. IMPRESSION: No acute cardiopulmonary abnormality.
[2023-08-25 02:14] VITALS: BP 133/73; PULSE 97; RESP 18; TEMP 98.1
== END 2023-08-25 02:01 | disposition home or self-care (01) ==
LOC: EC 22:37
DX: U07.1 COVID-19 (principal); F12.90 Cannabis use, unspecified, uncomplicated; Z88.6 Allergy status to analgesic agent; Z79.82 Long term (current) use of aspirin
CPT/HCPCS: 71046; 87636; 99283